=== PATIENT | male | born 1950 | race Caucasian/White ===

== ENCOUNTER 2019-12-06 11:58 | Inpatient (IN) | payer MEDICARE, OTHER ==
[2019-12-06 12:15] VITALS: BMI 31.0
[2019-12-06] MEDS ORDERED: Calcium Carbonate 500 MG ChewTAB PO PRN (14:44)
[2019-12-06] MEDS ORDERED: diphenhydrAMINE 25 MG CAP PO PRN (14:44)
[2019-12-06] MEDS ORDERED: guaiFENesin 100 MG/5 ML UDCUP PO PRN (14:44)
[2019-12-06] MEDS ORDERED: Simethicone Chewable 80 MG TAB PO PRN (14:48)
[2019-12-06] MEDS ORDERED: Bisacodyl 10 MG SUPP PR PRN (14:49)
[2019-12-06] MEDS ORDERED: Cepastat Lozenges 1 LOZ PO PRN (14:49)
[2019-12-06] MEDS ORDERED: Loperamide HCl 2 MG CAP PO PRN (14:49)
[2019-12-06] MEDS ORDERED: Acetaminophen 500 MG TAB PO SCH (17:00)
[2019-12-06] MEDS: Saccharomyces boulardii 250 MG CAP PO SCH ×2 (17:17→20:44)
[2019-12-06] MEDS: Acetaminophen/Codeine 30-300mg Tablet PO PRN (17:27)
[2019-12-06] MEDS ORDERED: Acetaminophen 500 MG TAB PO PRN (17:39)
[2019-12-06] MEDS: PROPRANOLOL PO SCH (20:44)
[2019-12-06] MEDS: MICONAZOLE 2% TOP SCH (20:44)
[2019-12-06] MEDS: Magnesium Oxide 400 MG TAB PO SCH (20:44)
[2019-12-07 07:22] LABS: #Basophils 0.1 thou/uL (0.0-0.2); #Eosinphils 1.4 thou/uL (0.0-0.7); #Lymphocytes 2.2 thou/uL (1.20-3.40); #Monocytes 1.1 thou/uL (0.11-0.59); #Neutrophils 4.9 thou/uL (1.40-6.50); %Basophils 1.4 % (0.0-1.0); %Eosinophils 14.6 % (0.0-10.0); %Lymphocytes 22.4 % (21.0-51.0); %Neutrophils 50.7 % (42.0-75.0); Hemoglobin 9.3 g/dL (14.0-18.0); Mean Corpuscular HGB CONC 32.7 g/dL (32.0-36.0); Mean Corpuscular Hemoglobin 33.1 pg (27.0-31.0); Mean Platelet Volume 7.1 fL (7.4-10.4); Platelet Count 287 thou/uL (130-400); RBC Distribution Width 12.8 % (11.5-14.5); White Blood Cell (WBC) Count 9.8 thou/uL (4.8-10.8)
[2019-12-07 07:23] LABS: INR-International Normal Ratio 1.5; Prothrombin Time 18.1 SEC (12.0-14.7)
[2019-12-07 07:37] LABS: ALT (SGPT) 21 U/L (8-55); AST (SGOT) 47 U/L (5-34); Alkaline Phosphatase 132 U/L (40-110); Anion Gap 10 mmol/L (10-20); BUN (Urea Nitrogen) 11 mg/dL (8.4-25.7); Bilirubin, Total 0.9 mg/dL (0.2-1.2); Calc. Creatinine Clearance 140 mL/min (70-130); Calcium 8.1 mg/dL (7.8-10.44); Carbon Dioxide 29 mmol/L (23-31); Chloride 102 mmol/L (98-107); Estimated GFR-MDRD Greater than 90; Globulin 3.5 g/dL (2.4-3.5); Glucose 102 mg/dL (80-115); Potassium 3.4 mmol/L (3.5-5.1); Protein, Total 5.5 g/dL (5.8-8.1); Sodium 138 mmol/L (136-145)
[2019-12-07] MEDS ORDERED: Spironolactone 100 MG TAB PO SCH ×3 (08:00→09:00)
[2019-12-07] MEDS: Magnesium Oxide 400 MG TAB PO SCH ×2 (08:11→20:18)
[2019-12-07] MEDS: Multivitamins CHEW w/Iron Tablet PO SCH (08:11)
[2019-12-07] MEDS: Saccharomyces boulardii 250 MG CAP PO SCH ×3 (08:11→20:18)
[2019-12-07] MEDS: Furosemide 40 MG TAB PO SCH ×2 (08:11→14:29)
[2019-12-07] MEDS: PROPRANOLOL PO SCH ×2 (08:12→20:18)
[2019-12-07] MEDS: MICONAZOLE 2% TOP SCH ×2 (08:12→20:18)
[2019-12-07] MEDS: Polyethylene Glycol 3350 17 GM Packet PO SCH (08:13)
[2019-12-07] MEDS: Acetaminophen/Codeine 30-300mg Tablet PO PRN (08:16)
[2019-12-07] MEDS ORDERED: Multivits W-Minerals Liquid 15 ML LIQ PO SCH (09:00)
[2019-12-07] MEDS ORDERED: Prevnar 13-Val Conj/PF 0.5 ML SYRINGE IM ONE (09:00)
--- NOTE | 2019-12-07 09:27 | PRG ---
DATE OF SERVICE: 12/07/[address] Fernando Urban. SUBJECTIVE: The patient feels well, sitting up in the bed, eating his breakfast. No complaints. States that he has been walking with therapy at rehab and will continue here. OBJECTIVE: VITAL SIGNS: Show blood pressure is 112/57, temperature is 98.5, pulse 89, respirations 19, O2 saturations 98% on room air. LUNGS: Clear. CARDIAC: Showed regular rhythm. ABDOMEN: Soft and distended, but nontender. Positive fluid wave. SKIN/EXTREMITIES: Showed wrapped in bandage. ASSESSMENT: 1. Resolved cellulitis. 2. Slowly improving superficial decubitus. 3. Cirrhosis with ascites, appears to be stable on spironolactone with no evidence of chronic kidney disease. 4. Significant malnutrition with albumin of 2.0. PLAN: 1. Change diet to low-salt, high-protein diet. 2. Continue PT and OT. 3. Continue wound care with bandages for wounds. 4. Increase spironolactone to 200 mg daily. Job ID: [id number]
--- NOTE | 2019-12-07 12:58 | HP ---
The patient of Bernardo Urban MD The date admission to the skilled unit, December 06, 2019. HISTORY OF PRESENT ILLNESS: The patient is an unfortunate 69-year-old white male with a long history of alcohol abuse and subsequent development of cirrhosis with ascites, who apparently admitted to the hospital after an episode of cellulitis and sepsis. He required significant paracentesis at that time, but was not found to have any evidence of peritonitis. He was treated with IV and oral antibiotics, but because of his significant weakness, was brought into [facility] for therapy. He had no evidence of any withdrawal syndrome during his stay but remained significantly weak and therefore was transferred over to the [facility] for continued therapy. His comorbidities include in addition to his alcohol abuse and ascites and cirrhosis that he has a history of hypertension, which has been fairly well controlled, history of depression and panic attacks which also has been fairly well controlled. He has no history of myocardial infarction, congestive heart failure, transient ischemic attack or cerebrovascular accident. He has had a cholecystectomy. He has no known allergies. MEDICATIONS: His medications at this time on admission are somewhat confusing, but apparently he is on 1. Spironolactone 100 mg daily. 2. Simethicone 80 mg 3 times daily. 3. Florastor 250 mg 3 times daily. 4. Inderal 20 mg twice daily. 5. Furosemide 40 mg twice daily. 6. Tylenol 500 mg as needed for pain. 7. Tylenol No.3 500 mg as needed for pain. He had been on clindamycin for his cellulitis, but this has been discontinued. He is also on MiraLAX but is not on any lactulose. SOCIAL HISTORY: He has a history tobacco, alcohol abuse, drinks six glasses of wine a day for which he was treating his panic disorder, which he states is equal to 1-2 bottles of wine a day. He is being going to the [facility], retired from the [employer]. He lives alone. FAMILY MEDICAL HISTORY: Positive for dementia and alcohol abuse. REVIEW OF SYSTEMS: HEENT: He denies any headaches, dizziness, change in vision or hearing, hoarseness, or dysphagia. PULMONARY: Denies cough, sputum production, pneumonia, asthma, tuberculosis. CARDIOVASCULAR: Denies chest pain, orthopnea, paroxysmal nocturnal dyspnea or edema. GASTROINTESTINAL: He does have abdominal distention, but denies any melena, hematemesis, nausea, or vomiting. GENITOURINARY: He denies dysuria, hematuria, nocturia. MUSCULOSKELETAL: He has the above-mentioned history of cellulitis of both legs with multiple decubitus. NEUROLOGIC: He has diffuse generalized weakness. No focal finding. PHYSICAL EXAMINATION: GENERAL: The patient is an elderly white male, lying in bed, in no acute distress. Oriented x3. VITAL SIGNS: Show him to have blood pressure of 100/54, temperature 98, pulse 81, respirations 20, O2 sats 94% on room air. HEENT: Pupils are equal, round, and reactive to light and accommodation. Sclerae anicteric. Conjunctivae are pale. Oral mucous membranes well hydrated. ABDOMEN: Distended, soft with fluid wave. No masses or organomegaly. SKIN/EXTREMITIES: Wrapped but apparently still has multiple small abrasions and erythema. NEUROLOGIC: Cranial nerves 2-12 are intact. Deep tendon reflex 2+ and equal. Absent Babinski. LABORATORY DATA: Laboratories still pending. From previous hospitalization, most recent laboratory show white count 10,400, hematocrit 31, hemoglobin 10.3, and platelet count is 207,000. Creatinine 0.75. Sodium 136, potassium 3.9, chloride 98, bicarb 31, BUN 14, creatinine 0.75, glucose 110. Calcium 8.3, albumin 2.4. AST 50, ALT 26, alkaline phosphatase 167. ASSESSMENT: The patient is a 69-year-old white male with history of alcohol abuse and subsequent cirrhosis with portal hypertension with ascites but no evidence of hypersplenism at this time or peritonitis, who has been admitted because of severe weakness, cellulitis and sepsis. This has resolved but he still has significant protein malnutrition and poorly healing wounds and needs wound care and is also significantly weak and requires PT and OT. He has not had any evidence of alcohol withdrawal and is on treatment for his portal hypertension and ascites with low-dose beta justo and with spironolactone. He will be continued on these medications. Continued on PT, OT, wound care, and monitored closely for alcohol withdrawal or any evidence of hepatic encephalopathy. He had required paracentesis twice and hopefully will not require that again as he is in no distress at this time. Job ID: [id number]
[2019-12-08] MEDS ORDERED: Spironolactone 100 MG TAB PO SCH (08:00)
[2019-12-08] MEDS: Polyethylene Glycol 3350 17 GM Packet PO SCH (08:21)
[2019-12-08] MEDS: Saccharomyces boulardii 250 MG CAP PO SCH ×3 (08:22→20:23)
[2019-12-08] MEDS: Multivitamins CHEW w/Iron Tablet PO SCH (08:23)
[2019-12-08] MEDS: Furosemide 40 MG TAB PO SCH ×2 (08:23→14:06)
[2019-12-08] MEDS: Magnesium Oxide 400 MG TAB PO SCH ×2 (08:23→20:21)
[2019-12-08] MEDS: MICONAZOLE 2% TOP SCH ×2 (09:17→20:22)
[2019-12-08] MEDS: PROPRANOLOL PO SCH (09:18)
[2019-12-08] MEDS: Acetaminophen/Codeine 30-300mg Tablet PO PRN (09:18)
[2019-12-08] MEDS ORDERED: Sod Chloride/Lan/MO/Peet,Wh (Lubriderm) Lotion 180 ml Bottle TOP PRN (11:23)
[2019-12-08] MEDS ORDERED: predniSONE 20 MG TAB PO SCH (19:45)
--- NOTE | 2019-12-08 20:17 | PRG ---
DATE OF SERVICE: 12/08/2019 SUBJECTIVE: The patient feels better with decreasing dyspnea, increasing strength, but is having decreasing soreness, tenderness of his legs, and is now having increasing rash of erythematous pruritic areas over both arms. OBJECTIVE: EXTREMITIES: Both arm shows a red confluent rash almost hive-like with no vesicles. It is warm, tender to touch. His lower legs, however, show resolving drying ulcers on his legs. ABDOMEN: Still distended with fluid wave, but nontender. LUNGS: Clear. CARDIAC: Showed regular rhythm. VITAL SIGNS: Show temperature 97.2, pulse 93, respirations 18, O2 saturations 100% on room air, blood pressure 161/80. ASSESSMENT: 1. Cirrhosis with ascites appears to be stable with no confusion, increasing strength. 2. Resolving cellulitis and ulcers of legs. 3. Increased pruritic red rash on the arms, possibly cellulitis, possibly allergic reaction, has had increased dose of spironolactone. PLAN: Discontinue spironolactone. Give 40 mg of prednisone. Discontinue ointment. Continue to monitor closely and possibly consider restarting clindamycin. Dr. Urban will be back tonight. Job ID: [id number]
[2019-12-08] MEDS: Propranolol HCl 20 MG TAB PO SCH (20:22)
[2019-12-09] MEDS: Furosemide 40 MG TAB PO SCH ×2 (08:56→14:15)
[2019-12-09] MEDS: Multivitamins CHEW w/Iron Tablet PO SCH (08:56)
[2019-12-09] MEDS: Magnesium Oxide 400 MG TAB PO SCH ×2 (08:56→20:13)
[2019-12-09] MEDS: Saccharomyces boulardii 250 MG CAP PO SCH ×3 (08:57→20:13)
[2019-12-09] MEDS: Polyethylene Glycol 3350 17 GM Packet PO SCH (08:57)
[2019-12-09] MEDS: MICONAZOLE 2% TOP SCH ×2 (08:57→20:13)
[2019-12-09] MEDS: Propranolol HCl 20 MG TAB PO SCH ×3 (08:57→20:13)
[2019-12-09] MEDS ORDERED: Loratadine 10 MG TAB PO SCH (20:00)
--- NOTE | 2019-12-09 20:39 | PRG ---
DATE OF SERVICE: 12/09/2019 SUBJECTIVE: Mr. Burton is a well-developed, well-nourished 69-year-old white male, with a long history of PTSD, alcohol abuse, and panic attacks. He developed chronic cirrhosis with ascites and was admitted to the hospital with cellulitis and sepsis. He required significant paracentesis, but had no peritonitis. He was treated with IV and oral antibiotics. He apparently qualified for [facility] and was there for approximately 2 weeks. He had no withdrawal and actually did very well. He is still very weak. He was transferred to [facility] for continued therapy. The patient states he is doing well except he has an itch all over. We did ask to get some Renée and some Sarna cream with Kenalog. Hopefully this will help his rash. PHYSICAL EXAMINATION: GENERAL: This is a well-developed, well-nourished, 69-year-old white male, in no apparent distress at this time. VITAL SIGNS: This morning reveal blood pressure 108/58, pulse 82, respirations 20, O2 saturation 96% on room air and T-max 96.4. HEENT: Normocephalic and nontraumatic cranium. Pupils are equal, round, and reactive. Extraocular movements are intact. Nose and throat are slightly dry. Sclerae nonicteric. NECK: Supple without masses, nodes, or bruits. CHEST: Clear to auscultation. No rales, rhonchi, wheezes, or cough is noted. Breath sounds are heard well down to the bases. HEART: Reveals a regular rate and rhythm without murmurs, gallops or rubs. ABDOMEN: Distended with a fluid wave. Much less distended than usual. No masses, organomegaly is noted. No rebound or guarding is noted. Normal bowel sounds are noted in all 4 quadrants. GENITOURINARY: Deferred. EXTREMITIES: Reveal no clubbing, cyanosis or edema. The patient has had cellulitis in bilateral lower extremities. Has multiple small abrasions with some erythema, but no significant swelling. NEUROLOGIC: 2 through 12 are intact. ASSESSMENT: 1. Alcohol abuse with subsequent cirrhosis with portal hypertension with ascites and anasarca. 2. Cellulitis. 3. Generalized weakness. 4. Protein malnutrition. 5. Portal hypertension. 6. Ascites, on low-dose beta justo with spironolactone. 7. Depression and panic attacks in the past. 8. Generalized weakness. PLAN: 1. Continue present medications. 2. Continue stress ulcer prophylaxis. 3. Continue to monitor the patient's blood pressure closely. 4. Monitor the patient's ascites to make sure he does not get overly distended and require another paracentesis. 5. Continue furosemide. 6. Dr. Lemon stopped his spironolactone for possible rash. 7. We will try the patient on Renée 180 mg nightly. 8. Connor with Narciso to the back b.i.d. Job ID: [id number]
[2019-12-10] MEDS: Furosemide 40 MG TAB PO SCH ×2 (08:26→14:15)
[2019-12-10] MEDS: Loratadine 10 MG TAB PO SCH (08:26)
[2019-12-10] MEDS: Magnesium Oxide 400 MG TAB PO SCH ×2 (08:26→20:16)
[2019-12-10] MEDS: Multivitamins CHEW w/Iron Tablet PO SCH (08:26)
[2019-12-10] MEDS: MICONAZOLE 2% TOP SCH ×2 (08:27→20:16)
[2019-12-10] MEDS: Saccharomyces boulardii 250 MG CAP PO SCH ×3 (08:27→20:16)
[2019-12-10] MEDS: Polyethylene Glycol 3350 17 GM Packet PO SCH (08:27)
[2019-12-10] MEDS: Propranolol HCl 20 MG TAB PO SCH ×2 (08:27→20:17)
--- NOTE | 2019-12-10 11:12 | PRG ---
DATE OF SERVICE: 12/10/2019 SUBJECTIVE: Mr. Burton is a well-developed, well-nourished 69-year-old white male, retired. He has a long history of PTSD, alcohol abuse, and panic attacks. He has been treating his panic attacks and PTSD with alcohol. He drinks several glasses of wine every day because the [facility] not gave him Xanax or Valium. Unfortunately, he developed cirrhosis with ascites and anasarca and cellulitis and sepsis. He had two paracentesis, but no peritonitis. He was treated with oral antibiotics and IV antibiotics finished those. He was transferred from [facility] here to continue with physical therapy. He is actually doing very well, he has had no withdrawal symptoms. He is walking well and expected to be discharged possibly within the near future. PHYSICAL EXAMINATION: VITAL SIGNS: Today reveal blood pressure 118/68, pulse 77 to 79, respirations 18 to 20, O2 saturation 95% to 93% on room air, T-max 97.1. GENERAL: This is a well-developed, well-nourished, very pleasant 69-year-old white male, in no apparent distress at this time. HEENT: Reveals normocephalic and nontraumatic cranium. Pupils equal, round, and reactive. Extraocular movements are intact. Nose and throat are slightly dry. NECK: Supple without masses, nodes, or bruits. CHEST: Clear to auscultation. No rales, rhonchi, wheezes, or cough is noted. No shortness of breath is noted. Breath sounds are heard well into the bases. HEART: Reveals a regular rate and rhythm without murmurs, gallops, or rubs. ABDOMEN: Still has a fluid wave, but still less distended and soft. No masses. No organomegaly is noted. No rebound or guarding is noted. Normal bowel sounds are noted in all 4 quadrants. GENITOURINARY: Deferred. EXTREMITIES: Reveal no clubbing, cyanosis, or edema. The patient has had bilateral cellulitis of both lower extremities, which is much improved. Continues to have some small abrasions with some erythema, but no significant swelling. The patient does complain of a rash and we did start him on some loratadine 10 mg last night and they are waiting to start his Kenalog 0.1% b.i.d. NEUROLOGIC: 2 through 12 are intact. ASSESSMENT: 1. Alcohol abuse with subsequent cirrhosis, portal hypertension, ascites, and anasarca. 2. Cellulitis, much improved. 3. Generalized weakness. 4. Protein malnutrition. 5. Portal hypertension. 6. Ascites on low-dose beta justo and Lasix. His spironolactone has been discontinued. 7. Depression and panic attacks in the past. PLAN: 1. Continue present medications. 2. Continue stress ulcer prophylaxis. 3. Continue to monitor the patient's blood pressure closely. 4. Monitor the patient's ascites to make sure he does not get overdistended and require another paracentesis. 5. Continue furosemide. 6. Dr. Lemon did stop his spironolactone, probable cause of his rash. 7. The patient was started on Claritin 10 mg daily. 8. We will continue Kenalog 0.1% b.i.d. to back. Job ID: [id number]
[2019-12-10] MEDS: Triamcinolone 0.1% Cream 15 GM TUBE TOP PRN (12:48)
[2019-12-11 05:26] LABS: #Basophils 0.1 thou/uL (0.0-0.2); #Eosinphils 0.7 thou/uL (0.0-0.7); #Lymphocytes 2.6 thou/uL (1.20-3.40); #Neutrophils 4.2 thou/uL (1.40-6.50); %Basophils 1.2 % (0.0-1.0); %Eosinophils 8.4 % (0.0-10.0); %Lymphocytes 30.2 % (21.0-51.0); %Monocytes 11.3 % (0.0-10.0); Hemoglobin 9.8 g/dL (14.0-18.0); Mean Corpuscular HGB CONC 33.3 g/dL (32.0-36.0); Mean Corpuscular Hemoglobin 33.2 pg (27.0-31.0); Mean Corpuscular Volume 99.8 fL (78.0-98.0); Mean Platelet Volume 7.4 fL (7.4-10.4); Platelet Count 261 thou/uL (130-400); RBC Distribution Width 12.8 % (11.5-14.5); Red Blood Cell (RBC) Count 2.93 mill/uL (4.70-6.10); White Blood Cell (WBC) Count 8.6 thou/uL (4.8-10.8)
[2019-12-11 05:40] LABS: ALT (SGPT) 26 U/L (8-55); AST (SGOT) 61 U/L (5-34); Albumin 2.2 g/dL (3.4-4.8); Alkaline Phosphatase 140 U/L (40-110); Anion Gap 12 mmol/L (10-20); BUN (Urea Nitrogen) 10 mg/dL (8.4-25.7); Bilirubin, Total 0.7 mg/dL (0.2-1.2); Calc. Creatinine Clearance 134 mL/min (70-130); Calcium 8.2 mg/dL (7.8-10.44); Carbon Dioxide 28 mmol/L (23-31); Chloride 104 mmol/L (98-107); Estimated GFR-MDRD Greater than 90; Globulin 3.8 g/dL (2.4-3.5); Glucose 109 mg/dL (80-115); Potassium 3.2 mmol/L (3.5-5.1); Sodium 141 mmol/L (136-145)
[2019-12-11] MEDS: Polyethylene Glycol 3350 17 GM Packet PO SCH (09:57)
[2019-12-11] MEDS: Magnesium Oxide 400 MG TAB PO SCH ×2 (09:57→19:47)
[2019-12-11] MEDS: Furosemide 40 MG TAB PO SCH ×2 (09:57→14:37)
[2019-12-11] MEDS: Loratadine 10 MG TAB PO SCH (09:57)
[2019-12-11] MEDS: Multivitamins CHEW w/Iron Tablet PO SCH (09:57)
[2019-12-11] MEDS: Saccharomyces boulardii 250 MG CAP PO SCH ×3 (09:58→19:47)
[2019-12-11] MEDS: MICONAZOLE 2% TOP SCH ×2 (09:58→10:02)
[2019-12-11] MEDS: Propranolol HCl 20 MG TAB PO SCH ×2 (10:01→19:47)
[2019-12-11] MEDS ORDERED: Sod Chloride/Lan/MO/Peet,Wh (Lubriderm) Lotion 180 ml Bottle TOP PRN (12:45)
[2019-12-11] MEDS: Triamcinolone 0.1% Cream 15 GM TUBE TOP PRN (19:48)
--- NOTE | 2019-12-11 20:21 | PRG ---
DATE OF SERVICE: 12/11/2019 SUBJECTIVE: Mr. Burton is a 69-year-old white male who comes into the hospital after being transferred from [facility]. He is here for continued wound care. He continues to have a wound from his rectoperineal area to the scrotum. This is having quite a bit of drainage and sometimes when he leaks from his Anderson catheter, it stays wet. He and I had a significant discussion along with wound care and the nurses and we will start changing his dressing every shift and p.r.n. We also had long discussion about his panic attacks. He has not been tried on Lexapro or Wellbutrin or Cymbalta and we will start some Lexapro 10 mg every morning. He is amenable to that and he is supposed to talk with the director of nurses tomorrow, Tu about his length of stay here. OBJECTIVE: VITAL SIGNS: This morning reveal blood pressure 127/61, pulse 78 to 84, respirations 18, O2 saturation 94% to 97% on room air, T-max 97.4. GENERAL: This is a well-developed, well-nourished, very pleasant 69-year-old white male, in no apparent distress at this time. HEENT: Reveals normocephalic and nontraumatic cranium. Pupils are equally round and reactive. Extraocular movements are intact. Nose and throat are slightly dry. NECK: Supple without masses, nodes, or bruits. CHEST: Clear to auscultation. No rales, rhonchi, or wheezes are heard. HEART: Reveals a regular rate and rhythm without murmurs, gallops, rubs. ABDOMEN: Soft, nontender without organomegaly. Still distended, still has fluid wave. No rebound or guarding is noted. Normal bowel sounds are noted in all 4 quadrants. : Deferred. Wound Care was seen by the patient today. We will change the dressing 3 times a week. After significant discussion, the nurses will change the wound dressing every shift and p.r.n. to keep him dry. EXTREMITIES: Reveal no clubbing, cyanosis, or edema. Cellulitis in both extremities are better. His abrasions and some erythema from his inflammation are better since they use Kenalog. ASSESSMENT: 1. Wound care to perineal area to have a dressing change every shift and p.r.n. 2. Cirrhosis. 3. Portal hypertension. 4. Ascites with anasarca, much improved. 5. Cellulitis, much improved. 6. Generalized weakness. 7. Protein malnutrition. 8. Portal hypertension. 9. On low-dose beta-justo and Lasix. 10. Spironolactone has been stopped secondary to rash. 11. Depression, panic attacks in the past. PLAN: 1. Start Lexapro 10 mg each morning. 2. Continue present other medications. 3. Continue stress ulcer prophylaxis. 4. Wound care dressing to be changed every shift and p.r.n. 5. Continue to monitor the patient's blood pressure closely. 6. Monitor the patient's ascites. 7. Continue furosemide and beta-justo. 8. Consider restarting the spironolactone since his rash has gone. 9. The patient is on Claritin 10 mg for itch. 10. Continue Kenalog 0.1 b.i.d. to back. Job ID: [id number]
[2019-12-12] MEDS: MICONAZOLE 2% TOP SCH ×3 (07:21→20:39)
[2019-12-12] MEDS: Multivitamins CHEW w/Iron Tablet PO SCH (09:11)
[2019-12-12] MEDS: Furosemide 40 MG TAB PO SCH ×2 (09:11→15:00)
[2019-12-12] MEDS: Propranolol HCl 20 MG TAB PO SCH ×3 (09:12→20:40)
[2019-12-12] MEDS: Magnesium Oxide 400 MG TAB PO SCH ×2 (09:12→20:39)
[2019-12-12] MEDS: Loratadine 10 MG TAB PO SCH (09:12)
[2019-12-12] MEDS: Saccharomyces boulardii 250 MG CAP PO SCH ×3 (09:12→20:40)
[2019-12-12] MEDS: Polyethylene Glycol 3350 17 GM Packet PO SCH (09:12)
[2019-12-12] MEDS: Escitalopram Oxalate 10 mg Tablet PO SCH (09:12)
[2019-12-12] MEDS: Acetaminophen/Codeine 30-300mg Tablet PO PRN ×2 (09:14→20:40)
[2019-12-12] MEDS: Potassium Chloride 10 MEQ TAB PO SCH (17:17)
--- NOTE | 2019-12-12 17:39 | PRG ---
DATE OF SERVICE: 12/12/2019 SUBJECTIVE: Mr. Burton is a well-developed, well-nourished 69-year-old white male, who comes to [facility] as a transfer from [facility]. He is here for continued wound care. He is actually doing very well with physical therapy and occupational therapy, but he continues to have a wound on his rectoperineal area. It is not gotten much better and so we have changed our care to changing dressings daily and p.r.n. He has quite a bit of drainage and sometimes, he leaks urine and stays wet down there. We will be re-evaluating that at every shift and changing it if it is damp at all. The patient states today he has good day. He has no concerns or complaints. His potassium is little low, so we started on potassium 10 mEq twice a day. For some reason, we got the Kenalog off his profile, so we moved it back on and he will get that twice a day to his rash. OBJECTIVE: VITAL SIGNS: This morning revealed blood pressure 116/59, pulse 75 to 83, respirations 18 to 20, O2 saturation 96% to 98% on room air, and T-max 98.6. GENERAL: This is a well-developed, well-nourished, pleasant 69-year-old white male, in no apparent distress at this time. HEENT: Reveals normocephalic and nontraumatic cranium. Pupils are equal, round, and reactive. Extraocular movements are intact. Nose and throat are slightly dry. NECK: Supple without masses, nodes, or bruits. CHEST: Clear to auscultation. No rales, rhonchi, wheezes, or cough is heard. HEART: Reveals a regular rate and rhythm without murmurs, gallops, or rubs. ABDOMEN: Obese, soft, and nontender without organomegaly. Normal bowel sounds are noted. No rebound or guarding is noted. Abdomen is still distended, has some fluid, but no significant anasarca. No rebound or guarding is noted. Normal bowel sounds noted in all 4 quadrants. : Deferred. The patient was found today in the restroom, noted to have a dressing over the coccyx area and the perineal area. 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 ASSESSMENT: 1. Wound care to perineal area with dressing change every shift and p.r.n. 2. Cirrhosis. 3. Portal hypertension. 4. Ascites with no anasarca noted today. 5. Cellulitis, much improved. 6. Generalized weakness. 7. Protein malnutrition. 8. Portal hypertension. 9. Low-dose beta justo and Lasix. 10. Spironolactone was stopped. We will consider restarting it. 11. Depression. 12. Panic attacks in the past. PLAN: 1. Continue Lexapro 10 mg every morning. 2. Continue present medications. 3. Continue Lasix. 4. Stress ulcer prophylaxis. 5. Wound care dressing to be changed every shift and p.r.n. to keep dry. 6. Continue to monitor the patient's blood pressure closely. 7. Monitor the patient for ascites. 8. Continue furosemide and beta justo. 9. Considering restarting spironolactone. 10. Continue Claritin 10 mg for itch. 11. Continue Kenalog b.i.d. to back. Job ID: [id number]
[2019-12-12] MEDS: Triamcinolone 0.1% Cream 15 GM TUBE TOP PRN (20:40)
[2019-12-13] MEDS: Polyethylene Glycol 3350 17 GM Packet PO SCH (07:53)
[2019-12-13] MEDS: Saccharomyces boulardii 250 MG CAP PO SCH ×2 (07:53→14:23)
[2019-12-13] MEDS: Potassium Chloride 10 MEQ TAB PO SCH ×2 (07:53→17:57)
[2019-12-13] MEDS: Loratadine 10 MG TAB PO SCH (07:53)
[2019-12-13] MEDS: Multivitamins CHEW w/Iron Tablet PO SCH (07:54)
[2019-12-13] MEDS: Magnesium Oxide 400 MG TAB PO SCH (07:54)
[2019-12-13] MEDS: Escitalopram Oxalate 10 mg Tablet PO SCH (07:54)
[2019-12-13] MEDS: Triamcinolone 0.1% Cream 15 GM TUBE TOP PRN (07:55)
[2019-12-13] MEDS: Furosemide 40 MG TAB PO SCH ×2 (07:55→14:23)
[2019-12-13] MEDS: MICONAZOLE 2% TOP SCH (07:57)
[2019-12-13] MEDS: Propranolol HCl 20 MG TAB PO SCH (07:59)
[2019-12-13] MEDS: Acetaminophen/Codeine 30-300mg Tablet PO PRN (11:41)
[2019-12-13 18:48] VITALS: BP 106/68; TEMP 98.2
--- NOTE | 2019-12-14 01:29 | DIS ---
DATE OF ADMISSION: 12/06/2019 DATE OF DISCHARGE: 12/13/2019 HOSPITAL COURSE: Mr. Burton is a well-developed, well-nourished 69-year-old white male, who was transferred from [facility] to [facility] for wound care. He initially was admitted to the hospital up in [place] with alcoholic cirrhosis and a wound on his rectal perineal area. His physical therapy and occupational therapy did very well, but he needed more wound care and he was transferred down here for continue wound care. He has actually been doing very well with Physical Therapy and Occupational Therapy and wound care has been slow healing. We did start him on dressing changes every shift and p.r.n. to keep that dry down there. The patient is not very happy with our care here because he is independent up that he wants to go to the bathroom by himself and he still has an alarm on his bed and his wheelchair. He states he feels like we are basically doing that just to aggravate him. I did explain to him that it was a liability because he is still somewhat weak and really was something that we had to do that every time he needs to go the bathroom, he should call. He states when he has the urge, he has to go immediately and he hits his butt and then he gets up and goes to the bathroom. Nonetheless, he is not very happy and is insisting on going home or he will sign out AMA. He states his brother is on his way to pick him up already. DISCHARGE MEDICATIONS: Include the followin. Escitalopram which is Lexapro 5 mg subcu daily. He has been decreased from 10 mg to 5 mg because he is somewhat better and it is a medication that can aggravate the liver. 2. Lasix 40 mg b.i.d. 3. Loratadine 10 mg daily for itch. 4. Magnesium oxide 400 mg twice a day. 5. Propranolol 20 mg twice a day. 6. The patient has been a little low on potassium. We had him on some potassium pills, but he would rather take few bananas every week. 7. The patient has also been taking Florastor, which is a probiotic and the patient would rather just eat yogurt. 8. The patient has been on spironolactone but last weekend, Dr. Lemon felt like it might be giving him rash and he had been complaining of quite a bit of rash, so therefore he was taken off that and put on triamcinolone cream, which now the patient will get over the counter hydrocortisone because it is somewhat weaker and his rash is much improved. The patient will continue to need wound care and so, he is to call his MD doctor tomorrow. He states the clinic is open tomorrow to get that set up. The patient states he will eat better at home and he will have more independence. OBJECTIVE: VITAL SIGNS: Reveal blood pressure this morning was somewhat low at 95/40 but over today, it did increase to 119/58. We did have to hold his Lasix this morning because of his low blood pressure. Pulse 73 to 79, respirations 18, O2 saturation 95% on room air, and T-max 97.1. GENERAL: This is a well-developed, well-nourished, pleasant , who is in no apparent distress at this time. HEENT: Normocephalic and nontraumatic cranium. The pupils are equally round and reactive. Extraocular movements are intact. Sclerae nonicteric. Nose and throat are dry. NECK: Supple without masses, nodes, or bruits. CHEST: Clear to auscultation. No rales, rhonchi, wheezes, or cough is heard. HEART: Reveals a regular rate and rhythm without murmurs, gallops, or rubs. ABDOMEN: Soft, nontender without organomegaly. Normal bowel sounds noted in all 4 quadrants. No rebound or guarding is noted. Abdomen is still less distended than usual and no anasarca is noted, but the patient does have ascites. : Deferred. The patient does have dressings over his coccyx and perineal areas. He states that will be the challenges that he will need to change those and keep it dry. We did talk extensively about how to keep himself clean if he can get to a shower and then pat dry that would work well. He does need to continue to keep it as dry as possible and not have urine on those areas. ASSESSMENT: 1. Cirrhosis. 2. Portal hypertension. 3. Ascites with no anasarca noted today. 4. Wound care of the perineal area with dressing changes twice a day and p.r.n. 5. Cellulitis, improved with no antibiotics at this time. 6. Protein malnutrition. 7. Low-dose beta justo. 8. Spironolactone was stopped because it was thought to have given rash, but we may reconsider restarting it if he has accumulation of ascites. 9. Panic attacks in the past. 10. Depression. 11. Generalized weakness. PLAN: 1. Continue Lexapro 5 mg for the next 30 days and if he does well, consider coming off it. 2. Continue present medications. 3. Continue Lasix 40 mg b.i.d. as long as his blood pressure will tolerate that. 4. Consider restarting spironolactone if he has increased ascites. 5. Stress ulcer prophylaxis. 6. The patient's wound should be kept dry and changed b.i.d. and p.r.n. 7. Continue to monitor the patient's blood pressure closely. 8. Monitor the patient for ascites. 9. Continue furosemide, beta justo. 10. Claritin 10 mg, which has helped tremendously for his itch. 11. The patient will start eating a few bananas to get his potassium back to where it needs to be. 12. The patient will continue on hydrocortisone instead of Kenalog. 13. The patient is to call MD tomorrow since the clinic is open. See if he can get seen or at least get started with home health since the patient is leaving after hours on Monday and there is no case picker around to get things checked off. 14. The patient has decided to go home without forewarning on a late Monday afternoon. Job ID: [id number]
--- NOTE | 2019-12-16 08:31 | PQF ---
Kevin Burton C. HENRY MD [id number] CLINICAL DOCUMENTATION CLARIFICATION FORM: POST DISCHARGE Addendum to original discharge summary date: ____ Late entry note date: __ Date: 12/16/2019 ATTN: Antony JAUREGUI MD Please exercise your independent, professional judgment in responding to the clarification form. Clinical indicators are provided on the bottom of this form for your review Please check appropriate box(s): [ ] Protein Calorie Malnutrition: [ ] Mild [ ] Moderate [ ] Severe [ ] Protein Calorie Malnutrition unspecified [ ] Unable to determine CLINICAL INDICATORS - SIGNS / SYMPTOMS / LABS - Protein malnutrition- DS, 12/13, Antony JAUREGUI MD - Generalized weakness- DS, 12/13, Antony JAUREGUI MD - Ascites with no anasarca noted today-DS, 12/13, Antony JAUREGUI MD - still has an alarm on his bed and his wheelchair- DS, 12/13, Antony JAUREGUI MD - Calculated BMI- 31.0- FNS assessment-12/06 - BL knees, L thigh, L calf, L hip stage III- FNS assessment, 12/13, - Serum total protein: 5.5L- Laboratory, 12/07 - Albumin:2.0L on 12/07, 2.2L on 12/11L - Laboratory report RISK FACTORS - Cellulitis- DS, 12/13, Antony JAUREGUI MD - Pressure ulcer to R ball of foot - FNS assessment, 12/13 TREATMENT: - Ensure Enlive TID- FNS assessment- 12/06 - Multivitamins w-minerals liquid.PO-MAR, 12/07 Moderate Malnutrition (in acute illness) Energy Intake: <75% of estimated energy requirement for > 7 days Weight Loss: 1-2%/1 week; 5%/ 1 month; 7.5%/3 months Other: mild body fat loss; mild muscle mass loss; mild fluid accumulation; Severe Malnutrition (in acute illness) Energy Intake: < 50% of estimated energy requirement for > 5 days Weight Loss: >1-2%/1 week; >5%/1 month; >7.5%/3 months Other: moderate body fat loss; moderate muscle mass loss; moderate- severe fluid accumulation; measurably reduced infrastructure design engineer strength Moderate Malnutrition (in chronic illness) Energy Intake: <75% of estimated energy requirement for >1 month Weight Loss: 5%/1 month; 7.5%/3 months; 10%/6 months; 20%/1 year Other: mild body fat loss; mild muscle mass loss; mild fluid accumulation Severe Malnutrition (in chronic illness) Energy Intake: <75% of estimated energy requirement for >1 month Weight Loss: >5%/1 month; >7.5%/3 months; >10%/6 months; >20%/1 year Other: severe body fat loss; severe muscle mass loss; severe fluid accumulation ; measurably reduced infrastructure design engineer strength This form is maintained as a part of the permanent medical record) 2014 [employer]. All Rights Reserved [email or web address]
== END 2019-12-13 19:55 | disposition home health service (06) | DRG 603 ==
LOC: NAV ACUTE 11:58
PROVIDERS: ADMIT Family Medicine; ATTEND Family Medicine
DX: L03.116 Cellulitis of left lower limb (principal); K76.6 Portal hypertension; E46 Unspecified protein-calorie malnutrition; F10.10 Alcohol abuse, uncomplicated; L03.115 Cellulitis of right lower limb; I10 Essential (primary) hypertension; K70.31 Alcoholic cirrhosis of liver with ascites; F43.10 Post-traumatic stress disorder, unspecified; F32.9 Major depressive disorder, single episode, unspecified; Z68.31 Body mass index [BMI] 31.0-31.9, adult; Z99.3 Dependence on wheelchair
CPT/HCPCS: 80053; 85025; 85610; 97602; J7512